=== PATIENT | female | born 1940 | race Caucasian/White ===

== ENCOUNTER 2021-08-29 17:58 | Observation (INO) ==
[2021-08-29] MEDS ORDERED: Lactated Ringers 1000 ml BAG IV.FLUID IV ONE (18:37)
[2021-08-29 19:38] LABS: ABS Lymphocytes 1.3 10^3/ul (1.0-4.8); ABS Monocytes 0.8 10^3/ul (0-0.8); ABS Neutrophils 3.4 10^3/ul (1.5-7.7); Eosinophil % 0.7 %; Hematocrit 40 % (35-47); Hemoglobin 13.5 g/dL (12.0-16.0); Lymphocyte % 24.1 %; Mean Corpuscular HGB Conc 34 g/dL (31-36); Mean Corpuscular Hemoglobin 29 pg (27-31); Mean Corpuscular Volume 85 fL (80-97); Mean Platelet Volume 8.6 fL (7.4-10.4); Platelet Count 248 10^3/uL (150-450); Red Blood Count 4.74 10^6 /uL (3.70-4.87); Red Cell Distribution Width 13 % (10-15); White Blood Count 5.6 10^3/uL (3.5-10.8)
[2021-08-29 19:58] LABS: Albumin 3.8 g/dL (3.2-5.2); Albumin/Globulin Ratio 1.1 (1-3); C Reactive Protein 49.28 mg/L (<8.01); Calcium 8.5 mg/dL (8.6-10.3); Globulin 3.4 g/dL (2-4); Potassium 3.2 mmol/L (3.5-5.0); Total Bilirubin 0.9 mg/dL (0.2-1.0); Total Protein 7.2 g/dL (6.4-8.9); eGFR CKD-EPI 55.7 (>60)
[2021-08-29 19:59] LABS: Troponin I 0.01 ng/mL (<0.03)
[2021-08-29 20:24] LABS: Activated Partial Thrombo Time 24.2 seconds (26.0-38.0); INR 1.2 (0.86-1.15)
[2021-08-29] MEDS ORDERED: Potassium Chlor 20 meq TAB.ER PO ONE (21:10)
[2021-08-29] MEDS ORDERED: Al Hydrox/Mg Hydrox/Simet LIQ 30 ML UDC PO PRN (22:15)
[2021-08-29] MEDS ORDERED: Remdesivir 100 mg Vial 200 MG in NS 0.9% 250 ml 210 ML IV ONE (22:19)
[2021-08-29] MEDS ORDERED: NS 0.9% w/ 40 Meq KCL 1000 ML 1,000 ML IV SCH (23:00)
[2021-08-30] MEDS: Enoxaparin 40 MG/0.4 ML SYR SUBCUT SCH ×2 (00:02→21:32)
[2021-08-30 06:09] LABS: ABS Lymphocytes 1.2 10^3/ul (1.0-4.8); ABS Monocytes 0.6 10^3/ul (0-0.8); ABS Neutrophils 2.5 10^3/ul (1.5-7.7); Eosinophil % 0.9 %; Hematocrit 40 % (35-47); Hemoglobin 13.5 g/dL (12.0-16.0); Mean Corpuscular HGB Conc 34 g/dL (31-36); Mean Corpuscular Hemoglobin 29 pg (27-31); Mean Corpuscular Volume 84 fL (80-97); Mean Platelet Volume 8.8 fL (7.4-10.4); Platelet Count 239 10^3/uL (150-450); Red Blood Count 4.68 10^6 /uL (3.70-4.87); Red Cell Distribution Width 12 % (10-15); White Blood Count 4.4 10^3/uL (3.5-10.8)
[2021-08-30 06:15] LABS: INR 1.17 (0.86-1.15)
[2021-08-30 06:26] LABS: Albumin 3.8 g/dL (3.2-5.2); Albumin/Globulin Ratio 1.2 (1-3); Calcium 8.5 mg/dL (8.6-10.3); Globulin 3.1 g/dL (2-4); Potassium 3.6 mmol/L (3.5-5.0); Total Protein 6.9 g/dL (6.4-8.9); eGFR CKD-EPI 59.8 (>60)
[2021-08-30] MEDS ORDERED: Remdesivir 100 mg Vial 100 MG in NS 0.9% 250 ml 230 ML IV SCH (21:00)
[2021-08-31 07:12] LABS: INR 1.13 (0.86-1.15)
[2021-08-31 12:09] VITALS: BP 112/54
== END 2021-08-30 15:00 | disposition short-term general hospital (02) ==
LOC: ED 17:58 → EDHOLD 17:58 → MED 08-30 12:10
PROVIDERS: ADMIT Internal Medicine; ATTEND Internal Medicine

== ENCOUNTER 2021-08-30 15:15 | Inpatient (IN) ==
[2021-08-30] MEDS ORDERED: Ondansetron 4 mg VIAL 2 MG/ML 2 ml VIAL IV PRN (16:02)
[2021-08-30] MEDS ORDERED: Enoxaparin 40 MG/0.4 ML SYR SUBCUT SCH (17:00)
[2021-08-31] MEDS ORDERED: Al Hydrox/Mg Hydrox/Simet LIQ 30 ML UDC PO PRN (13:30)
[2021-08-31] MEDS: Enoxaparin 40 MG/0.4 ML SYR SUBCUT SCH ×2 (14:04→23:09)
[2021-09-01] MEDS: Enoxaparin 40 MG/0.4 ML SYR SUBCUT SCH (19:52)
[2021-09-02] MEDS: Enoxaparin 40 MG/0.4 ML SYR SUBCUT SCH (19:04)
[2021-09-03] MEDS: Enoxaparin 40 MG/0.4 ML SYR SUBCUT SCH (23:14)
[2021-09-04] MEDS: Enoxaparin 40 MG/0.4 ML SYR SUBCUT SCH (19:47)
[2021-09-05] MEDS: Enoxaparin 40 MG/0.4 ML SYR SUBCUT SCH (20:38)
[2021-09-06] MEDS: Enoxaparin 40 MG/0.4 ML SYR SUBCUT SCH (22:05)
[2021-09-07] MEDS: Enoxaparin 40 MG/0.4 ML SYR SUBCUT SCH (20:17)
[2021-09-08 08:08] VITALS: BP 150/64
== END 2021-09-08 10:35 | disposition home or self-care (01) | DRG 179 ==
LOC: SUATTDRO 08-31 13:17 → MED 08-31 13:17
PROVIDERS: ADMIT Internal Medicine; ATTEND Internal Medicine

== ENCOUNTER 2023-11-05 19:42 | Observation (INO) ==
[2023-11-05 20:54] LABS: ABS Lymphocytes 0.7 10^3/uL (1.0-4.8); ABS Monocytes 0.6 10^3/uL (0.0-0.9); ABS Neutrophils 6.1 10^3/uL (1.5-7.6); Hematocrit 37.8 % (35-45); Hemoglobin 12.9 g/dL (11.5-14.3); Lymphocyte % 9.1 %; Mean Corpuscular Hemoglobin 28.3 pg (27-33); Mean Corpuscular Hgb Conc 34.1 g/dL (31-36); Mean Corpuscular Volume 82.9 fL (80-97); Mean Platelet Volume 6.9 fL (7.5-11.2); Platelet Count 392 10^3/uL (150-450); Red Blood Count 4.56 10^6/uL (3.63-4.92); Red Cell Distribution Width 13.6 % (12-17); White Blood Count 7.5 10^3/uL (3.8-11.8)
[2023-11-05 21:00] LABS: Activated Partial Thrombo Time 29.6 seconds (26.0-38.0); INR 1.22 (0.83-1.13)
[2023-11-05 21:22] LABS: Urine Appearance Extra Turbid; Urine Bilirubin Negative (Negative); Urine Blood 1+ (Negative); Urine Glucose Negative (Negative); Urine Ketones 4+ (Negative); Urine Nitrite 2+ (Negative); Urine Protein 1+ (>=30 mg/dL) (Negative); Urine Specific Gravity 1.016 (1.002-1.030); Urine Urobilinogen 2+ (Negative)
[2023-11-05 21:27] LABS: Albumin 3.8 g/dL (3.2-5.2); Albumin/Globulin Ratio 1.2 (1-3); C Reactive Protein 196.38 mg/L (<8.01); Calcium 8.7 mg/dL (8.6-10.3); Creatinine, Serum 1.03 mg/dL (0.51-0.95); Globulin 3.3 g/dL (2-4); Potassium 3.7 mmol/L (3.5-5.0); Total Bilirubin 1.3 mg/dL (0.2-1.0); Total Protein 7.1 g/dL (6.4-8.9); eGFR CKD-EPI 54.6 (>60)
[2023-11-05 21:33] LABS: Urine Bacteria 3+ /HPF (Absent); Urine Red Blood Cell 3+(>10/hpf) /HPF (0-Trace); Urine Squamous Epithelial Cell Present /HPF (Absent); Urine White Blood Cell 3+(>20/hpf) /HPF (0-Trace)
[2023-11-05 21:47] LABS: Urine Color Yellow
[2023-11-05] MEDS: cefTRIAXone 1 gm/50 mL D5W 1 GM/50 ML BAG IV ONE (22:28)
[2023-11-05 22:53] LABS: High Sensitivity Troponin 1 Hr 3 pg/mL (<15)
[2023-11-06 01:42] LABS: Magnesium 1.9 mg/dL (1.9-2.7)
[2023-11-06 05:28] LABS: ABS Lymphocytes 1.1 10^3/uL (1.0-4.8); ABS Monocytes 1.2 10^3/uL (0.0-0.9); ABS Neutrophils 5.2 10^3/uL (1.5-7.6); Eosinophil % 0.1 %; Hematocrit 34.6 % (35-45); Hemoglobin 11.5 g/dL (11.5-14.3); Lymphocyte % 14.1 %; Mean Corpuscular Hemoglobin 27.8 pg (27-33); Mean Corpuscular Hgb Conc 33.1 g/dL (31-36); Mean Platelet Volume 6.9 fL (7.5-11.2); Nucleated Red Blood Cells % 0.1 %/100WBC (0.0-0.8); Platelet Count 358 10^3/uL (150-450); Red Blood Count 4.13 10^6/uL (3.63-4.92); Red Cell Distribution Width 13.1 % (12-17); White Blood Count 7.5 10^3/uL (3.8-11.8)
[2023-11-06 06:01] LABS: Albumin 3.3 g/dL (3.2-5.2); Albumin/Globulin Ratio 1.2 (1-3); Creatinine, Serum 0.98 mg/dL (0.51-0.95); Globulin 2.8 g/dL (2-4); Potassium 3.7 mmol/L (3.5-5.0); Total Bilirubin 0.7 mg/dL (0.2-1.0); Total Protein 6.1 g/dL (6.4-8.9)
[2023-11-06] MEDS: Enoxaparin 40 MG/0.4 ML SYR SUBCUT SCH (09:04)
[2023-11-06 10:22] VITALS: BP 112/93
[2023-11-06] MEDS ORDERED: cefTRIAXone 1 gm/50 mL D5W 1 GM/50 ML BAG IV SCH (22:00)
== END 2023-11-06 15:00 | disposition home or self-care (01) ==
LOC: EDHOLD 19:42 → ED 19:42 → SUATTDRO 11-06 01:20 → MED 11-06 02:24
PROVIDERS: ADMIT Internal Medicine; ATTEND Student in an Organized Health Care Education/Training Program